=== PATIENT | male | born 1950 | race Caucasian/White ===

== ENCOUNTER 2018-06-30 09:22 | Inpatient (IN) | payer OTHER, MEDICARE ==
--- NOTE | 2018-06-30 09:24 | PDOC ---
History of Present Illness - General Chief Complaint: Shortness of Breath Stated Complaint: shortness of breath - History of Present Illness Initial Comments: The patient is a 68M w/ a history of HTN, HLD, and an undiagnosed connective tissue disorder who presents for evaluation of 2 days of intermittent dyspnea. The patient reports never having had this before. Thus far the episodes will start and resolve spontaneously. He has not been able to identify any exacerbating or alleviating factors. He denies associated cough, fevers, sick contacts, N/V/C/D, or changes in sensation. The patient endorses chronic hyperalgesia. He also endorses 1m of L thoracic chest pain that is described as sharp, intermittent, non-excertional, worse with palpation, and not alleviated by anything that he can think of. Denies hx of asthma/COPD, reports quitting tobacco 3y ago. 06/30/18 09:50 Past History - Past Medical History Allergies/Adverse Reactions: Allergies Allergy/AdvReac Type Severity Reaction Status Date / Time No Known Allergies Allergy Verified 06/30/18 09:24 Home Medications: Ambulatory Orders Brimonidine Tartrate/Timolol [Combigan Eye Drops] 5 ml OP BID 06/30/18 Cyclosporine [Restasis Multidose] 0 ml OP ASDIR 06/30/18 Diclofenac Sodium 50 mg PO BID 06/30/18 Latanoprost/Pf [Latanoprost 0.005% Eye Drop] 7.5 ml OP DAILY 06/30/18 Tamsulosin HCl [Flomax] 0.4 mg PO HS 06/30/18 Anemia: No Asthma: No Cancer: No Cardiac Disorders: No CVA: No COPD: No CHF: No Dementia: No Diabetes: No GI Disorders: Yes (BLOATING/CONSTIPATION X 1 MONTH) Disorders: Yes (BPH) HTN: Yes Hypercholesterolemia: Yes Liver Disease: No Seizures: No Thyroid Disease: No - Surgical History Abdominal Surgery: Yes (BILA HERNIA REPAIR 2009) Appendectomy: No Cardiac Surgery: No Cholecystectomy: No Lung Surgery: No Neurologic Surgery: No Orthopedic Surgery: No - Suicide/Smoking/Psychosocial Hx Smoking History: Former smoker Have you smoked in the past 12 months: No If you are a former smoker, when did you quit?: 1970S Hx Alcohol Use: No Drug/Substance Use Hx: No Substance Use Type: None Hx Substance Use Treatment: No Review of Systems - Review of Systems Able to Perform ROS?: Yes Comments:: GENERAL/CONSTITUTIONAL: No fever or chills. No weakness HEAD, EYES, EARS, NOSE AND THROAT: No change in vision. No ear pain or discharge. No sore throat RESPIRATORY: No cough, wheezing, or hemoptysis GASTROINTESTINAL: No nausea, vomiting, diarrhea or constipation GENITOURINARY: No dysuria, frequency, or change in urination MUSCULOSKELETAL: +chronic diffuse neuropathy SKIN: No rash NEUROLOGIC: No headache, vertigo, loss of consciousness, or change in strength/ sensation ENDOCRINE: No increased thirst. No abnormal weight change HEMATOLOGIC/LYMPHATIC: No anemia, easy bleeding, or history of blood clots ALLERGIC/IMMUNOLOGIC: No hives or skin allergy 06/30/18 09:29 Is the patient limited Tuvaluan proficient: No *Physical Exam - Vital Signs Vital Signs Temp Pulse Resp BP Pulse Ox 98.3 F 82 16 197/100 H 100 06/30/18 09:24 06/30/18 09:24 06/30/18 09:24 06/30/18 09:24 06/30/18 09:24 06/30/18 09:30 - Physical Exam Comments: GENERAL: Awake, alert, and fully oriented, in no acute distress HEAD: No signs of trauma, normocephalic, atraumatic EYES: PERRLA, EOMI, sclera anicteric, conjunctiva clear ENT: Hearing grossly normal, nares patent, oropharynx clear without exudates. Moist mucosa LUNGS: No distress, speaks full sentences, clear to auscultation bilaterally HEART: Regular rate and rhythm, normal S1 and S2, no murmurs appreciated, peripheral pulses normal and equal bilaterally ABDOMEN: Soft, protuberant, nontender, normoactive bowel sounds. No guarding, no rebound EXTREMITIES : Normal inspection, Normal range of motion, no edema. No clubbing or cyanosis NEUROLOGICAL: Cranial nerves II through XII grossly intact. Normal speech, normal gait, no focal sensorimotor deficits SKIN: Warm, Dry, normal turgor, no rashes or lesions noted 06/30/18 09:30 ED Treatment Course - LABORATORY CBC & Chemistry Diagram: 06/30/18 10:21 06/30/18 10:21 Medical Decision Making - Medical Decision Making The patient is a 68M w/ a history of HTN, HLD, and a yet undiagnosed Rheumatological d/o who presents for evaluation of intermittent, non-excertional , dyspnea for the last two days. Ddx: viral URI, PNA, PNX, ACS, HTN urgency ED Course CMP, CBC, cardiac profile ECG CXR 06/30/18 09:30 Rheum: Dr. Cagle: [phone] -Reports patient is generally rather anxious. May have some level of cognitive delay related to autoimmune process. Thus far is unsure of diagnosis. Reports patient recently saw new [facility]n [facility] but does not know name. PCP: Dr. Bueno -Attempted to contact but will no be in his office until 1200. Amlodipine 5mg PO once for HTN urgency 06/30/18 09:59 No leukocytosis Patient w/ records of normal stress test in 11/2017 for evaluation of BRITT -Patient w/ similar w/u in 2009 as well w/ negative cardiac w/u 06/30/18 10:[address] Bueno again. Per his office he has scheduled patient's today and will be in. Another message was left for call back. At this time the patient does not wish to stay for admission and would like to have Dr. Bueno's licensed mental health counselor before making his decision Initial Trop I neg Plan for admission for tele obs for ACS r/o 06/30/18 12:15 Spoke w/ Dr. Bueno who stated that on the patient's last two visits, he did not complain of chest pain or BRITT. He states he agrees with admission for serial Trop and ECHO. He also reports that he is unaware of the patient seeing a director of recruitment if it has occurred. Dispo: Admit *DC/Admit/Observation/Transfer Diagnosis at time of Disposition: Shortness of breath, ACS (acute coronary syndrome) - Discharge Dispostion Condition at time of disposition: Stable Decision to Admit order: Yes - Referrals - Patient Instructions - Post Discharge Activity
--- NOTE | 2018-06-30 10:24 | PDOC ---
Attending Attestation - Resident Resident Name: Raad Austin - ED Attending Attestation I have performed the following: I have examined & evaluated the patient, The case was reviewed & discussed with the resident, I agree w/resident's findings & plan - HPI HPI: 06/30/18 10:19 68-year-old male with history of hypertension, high cholesterol, smoking until 3y ago, currently undergoing workup for get undiagnosed myalgias described as one year of bilateral arm and leg pain, now presents with shortness of breath over the last 1-2 days. Patient's proceeding symptoms consisted of a "pulling sensation" in his arms and legs, has had extensive workups including a stress test in December performed for hand tingling that was normal, undergoing rheumatologic workup and is status post skin biopsy. Patient presents now with trouble catching his breath since yesterday, described as 3 separate episodes while at rest. The symptoms are associated with some left chest discomfort, but he has been having chest discomfort intermittently for a couple of months, presumably as part of his underlying disease. Asymptomatic at this time, but presents secondary to trouble breathing this morning. At baseline, reports unlimited exercise tolerance, no recent fevers or chills or cough. Has had leg swelling for several months. Reports compliance with his blood pressure medications, states his blood pressure is always high. - Physicial Exam PE: 06/30/18 10:22 Elevated blood pressure, 170/90 on my evaluation Comfortable appearing, ambulatory and speaking full sentences. Obese. Oropharynx clear, no stridor Lungs are clear, no crackles or asymmetry Heart is regular, subtle systolic murmur Abdomen is protuberant but soft and nontender and nondistended 1-2+ pitting edema bilaterally to the knees without calf tenderness and good distal pulses - Medical Decision Making 06/30/18 10:23 68-year-old male presents with relatively new difficulty breathing and subacute left-sided chest pain. Has several risk factors for ACS, had a stress test in December that was reportedly unremarkable but this preceded any cardiopulmonary symptoms. Less likely infectious process, lower suspicion for PE. Question ACS versus symptomatic hypertension and early diastolic failure. Labs, EKG, chest x-ray We'll discuss with patient's physicians, but likely admission for cardiac monitoring and workup 06/30/18 12:33 w/u within normal limits except for new LLL density. no evidence of infection, ? effusion. proceed with admission but patient currently refusing, citing having had a stress test in November and undergoing multiple analyses as an outpt. explained indications for admission and entire spectrum of leaving without complete workup. wants to speak to his PCP, from whom we are awaiting a callback. otherwise, has been accepted for obs tele by Dr. Rosa, signout given to ISAMAR Mota. Awaiting patient's consent. Heart Score/ECG Review - History History: Moderately suspicious - Electrocardiogram EKG: Non specific repolarization disturbance - Age Age: >/= 65 - Risk Factors Risk Factors Heart Score: Yes Hx Hypercholesterolemia, Yes Hx Hypertension, Yes Smoking History, Yes Hx Obesity Based on the list above the patient has:: >/=3 risk factors or Hx atherosclerotic disease - Troponin Troponin: </= normal limit - Score Heart Score - Total: 6 #1 ECG reviewed & interpreted by me at: 09:27 General ECG Interpretation: Sinus Rhythm, Normal Rate (74), Normal Intervals ( qtc 384), No acute ischemic changes (nonspecific T wave change III/AVF, TWI V4- V6)
[2018-06-30 10:28] LABS: HEMATOCRIT 46.2 % (35.4-49); HEMOGLOBIN 15.8 GM/dl (11.7-16.9); MCHC 34.1 g/dl (32.0-35.9); MEAN CELL VOLUME 87.9 fl (80-96); MEAN PLT VOLUME 9.4 fl (7.5-11.1); PLATELET COUNT 184 K/MM3 (134-434); RBC 5.26 M/mm3 (4.00-5.60); RDW 12.1 % (11.9-15.9); WHITE BLOOD COUNT 9.1 K/mm3 (4.0-10.8)
[2018-06-30] MEDS ORDERED: amLODIPine BESYLATE 5 MG TABLET (FP) PO ONE ×2 (10:36→17:27)
[2018-06-30] MEDS ORDERED: amLODIPine BESYLATE 5 MG TABLET (FP) ONE (10:48)
[2018-06-30 11:50] LABS: ALBUMIN 3.9 g/dl (3.4-5.0); ALK PHOS 89 U/L (45-117); ANION GAP 10 MMOL/L (8-16); BILIRUBIN,TOTAL 0.8 mg/dL (0.2-1); BLOOD UREA NITROGEN 25 mg/dL (7-18); CALCIUM 8.9 mg/dL (8.5-10.1); CHLORIDE 104 mmol/L (98-107); CO2 25 mmol/L (21-32); GLUCOSE,RANDOM 111 mg/dL (74-106); POTASSIUM 4.3 mmol/L (3.5-5.1); SGOT/AST 21 U/L (15-37); SGPT/ALT 49 U/L (13-61); SODIUM 138 mmol/L (136-145); TOT PROT 6.9 g/dl (6.4-8.2)
--- NOTE | 2018-06-30 12:59 | EKG ---
Test Reason : Blood Pressure : / mmHG Vent. Rate : 074 BPM Atrial Rate : 074 BPM P-R Int : 100 ms QRS Dur : 094 ms QT Int : 346 ms P-R-T Axes : 000 061 -18 degrees QTc Int : 384 ms SINUS RHYTHM WITH SHORT IL ABNORMAL ECG NO PREVIOUS ECGS AVAILABLE Confirmed by Jordi Hopkins MD ([id number]) on 06/30/2018 12:59:27 PM Referred By: GERA RIVERA Confirmed By:Jordi Hopkins MD
--- NOTE | 2018-06-30 13:48 | HP ---
CHIEF COMPLAINT: SOB PCP: Sam Antunez [place] Facilities Maintenance Worker: Dr. Cagle, [facility] Computer Numerical Control Programmer: Dr. Whittaker, [facility] HISTORY OF PRESENT ILLNESS: 68 year-old male with a PMH significant for HTN and HLD currently undergoing workup for myalgias described as one year of bilateral arm and leg pain and episodes of chest tightness and shortness of breath. Suspicion for amyloidosis but no diagnoses to date. Patient presented to the ED today with a complaint of SOB much worse than it has been over the past several months. He describes a "pulling sensation" in his arms and legs and he loses his breath. He has had 2- 3 such episodes over the past two days. He was at rest when the episodes started. They lasted for several hours each, and then spontaneously resolved. Patient had a full cardiac workup in December 2017 at [place] inclucing stress and echo all reportedly normal. At baseline, reports unlimited exercise tolerance, no recent fevers or chills or cough. Has had leg swelling for several months. Reports compliance with his blood pressure medications, states his blood pressure is always high. ER course was notable for: (1) BP 197/100, p68 (2) ECG: SR @ 74 with TWI V4-V6 (no previous for comparison) Recent Travel: No PAST MEDICAL HISTORY: Hypertension Hyperlipidemia Myalgias PAST SURGICAL HISTORY: Hernia repair Social History: Smoking: quit 3 years ago Alcohol: occasional Drugs: no Family History: Allergies No Known Allergies Allergy (Verified 06/30/18 09:24) HOME MEDICATIONS: Home Medications Medication Instructions Recorded Brimonidine Tartrate/Timolol 5 ml OP BID 06/30/18 [Combigan Eye Drops] Cyclosporine [Restasis Multidose] 0 ml OP ASDIR 06/30/18 Diclofenac Sodium 50 mg PO BID 06/30/18 Latanoprost/Pf [Latanoprost 0.005% 7.5 ml OP DAILY 06/30/18 Eye Drop] Tamsulosin HCl [Flomax] 0.4 mg PO HS 06/30/18 REVIEW OF SYSTEMS CONSTITUTIONAL: Absent: fever, chills, diaphoresis, generalized weakness, malaise, loss of appetite, weight change HEENT: Absent: rhinorrhea, nasal congestion, throat pain, throat swelling, difficulty swallowing, mouth swelling, ear pain, eye pain, visual changes CARDIOVASCULAR: +SOB, lower extremity edema Absent: chest pain, syncope, palpitations, irregular heart rate, lightheadedness RESPIRATORY: Absent: cough, shortness of breath, dyspnea with exertion, orthopnea, wheezing, stridor, hemoptysis GASTROINTESTINAL: Absent: abdominal pain, abdominal distension, nausea, vomiting, diarrhea, constipation, melena, hematochezia GENITOURINARY: Absent: dysuria, frequency, urgency, hesitancy, hematuria, flank pain, genital pain MUSCULOSKELETAL: +myalgias Absent: myalgia, arthralgia, joint swelling, back pain, neck pain SKIN: Absent: rash, itching, pallor HEMATOLOGIC/IMMUNOLOGIC: Absent: easy bleeding, easy bruising, lymphadenopathy, frequent infections ENDOCRINE: Absent: unexplained weight gain, unexplained weight loss, heat intolerance, cold intolerance NEUROLOGIC: Absent: headache, focal weakness or paresthesias, dizziness, unsteady gait, seizure, mental status changes, bladder or bowel incontinence PSYCHIATRIC: Absent: anxiety, depression, suicidal or homicidal ideation, hallucinations. PHYSICAL EXAMINATION Vital Signs - 24 hr 06/30/18 06/30/18 06/30/18 09:24 09:31 11:11 Temperature 98.3 F Pulse Rate 82 Pulse Rate [ 77 Apical] Respiratory 16 16 Rate Blood Pressure 197/100 H Blood Pressure 177/82 H 168/92 [Arm] O2 Sat by Pulse 100 99 Oximetry (%) 06/30/18 06/30/18 11:47 13:22 Temperature Pulse Rate Pulse Rate [ 66 75 Apical] Respiratory 16 18 Rate Blood Pressure Blood Pressure 167/91 158/91 [Arm] O2 Sat by Pulse 97 98 Oximetry (%) GENERAL: Awake, alert, and fully oriented, in no acute distress. Anxious. HEAD: Normal with no signs of trauma. EYES: Pupils equal, round and reactive to light, extraocular movements intact, sclera anicteric, conjunctiva clear. No lid lag. LUNGS: Breath sounds equal, clear to auscultation bilaterally. No wheezes, and no crackles. No accessory muscle use. HEART: Regular rate and rhythm, S1 and S2 without murmur, rub or gallop. ABDOMEN: Soft, nontender, protuberant MUSCULOSKELETAL: Normal range of motion at all joints. No bony deformities or tenderness. No CVA tenderness. UPPER EXTREMITIES: 2+ pulses, warm, well-perfused. No cyanosis. No clubbing. No peripheral edema. LOWER EXTREMITIES: 2+ pulses, warm, well-perfused. No calf tenderness. No peripheral edema. No calf tenderness NEUROLOGICAL: Cranial nerves II-XII intact. Normal speech. Normal gait. Laboratory Results - last 24 hr 06/30/18 06/30/18 06/30/18 10:21 10:21 10:21 WBC 9.1 RBC 5.26 Hgb 15.8 Hct 46.2 MCV 87.9 MCH 30.0 MCHC 34.1 RDW 12.1 Plt Count 184 MPV 9.4 D Sodium 138 Potassium 4.3 Chloride 104 Carbon Dioxide 25 Anion Gap 10 BUN 25 H Creatinine 1.0 Creat Clearance w eGFR > 60 Random Glucose 111 H Calcium 8.9 Total Bilirubin 0.8 AST 21 ALT 49 Alkaline Phosphatase 89 Creatine Kinase 120 Troponin I < 0.02 Total Protein 6.9 Albumin 3.9 ASSESSMENT/PLAN 68 year-old male with a PMH significant for HTN, HLD, and myalgias. Placed on observation for chest pain and SOB. Chest pain Shortness of breath --Troponins neg x 2, third pending --CXR: unremarkable --ECG: sinus rhythm @ 74, T wave inversions V4-V6, no previous for comparison --echo ordered --telemetry monitoring --NPO tonight in event of stress tomorrow --Dr. Early, cardiology, to follow --continue ASA and statin Hypertensive urgency --BP 197/100 in ED --continued on home amlodipine and added lisinopril Hyperlipidemia --continue statin FEN Fluids: PO intake adequate Electrolytes: replete as indicated Nutrition: low sodium DVT prophylaxis: subq lovenox Dispo: continues to require observation. Full code. Visit type - Emergency Visit Emergency Visit: Yes ED Registration Date: 06/30/18 Care time: The patient presented to the Emergency Department on the above date and was hospitalized for further evaluation of their emergent condition. - New Patient This patient is new to me today: Yes Date on this admission: 07/01/18 - Critical Care Critical Care patient: No
[2018-06-30 14:13] VITALS: BMI 38.8
[2018-06-30] MEDS ORDERED: [UNRECOGNIZED DRUG - OTHER] OS SCH (15:00)
[2018-06-30] MEDS ORDERED: LATANOPROST OS SCH (15:00)
--- NOTE | 2018-06-30 15:06 | CON.CARD ---
Consult Consult Specialty:: Cardiology - History of Present Illness History of Present Illness: 68-year-old male with history of hypertension, high cholesterol, smoking until 3y ago, currently undergoing workup for get undiagnosed myalgias described as one year of bilateral arm and leg pain, now presents with shortness of breath over the last 1-2 days. Patient's proceeding symptoms consisted of a "pulling sensation" in his arms and legs, has had extensive workups including a stress test in December performed for hand tingling that was normal, undergoing rheumatologic workup and is status post skin biopsy. Patient presents now with trouble catching his breath since yesterday, described as 3 separate episodes while at rest. The symptoms are associated with some left chest discomfort, but he has been having chest discomfort intermittently for a couple of months, presumably as part of his underlying disease. - History Source History Provided By: Patient, Medical Record - Past Medical History Cardio/Vascular: Yes: HTN, Hyperlipdemia - Alcohol/Substance Use Hx Alcohol Use: No - Smoking History Smoking history: Former smoker Have you smoked in the past 12 months: No If you are a former smoker, when did you quit?: 1970S Home Medications - Allergies Allergies/Adverse Reactions: Allergies Allergy/AdvReac Type Severity Reaction Status Date / Time No Known Allergies Allergy Verified 06/30/18 09:24 - Home Medications Home Medications: Ambulatory Orders Brimonidine Tartrate/Timolol [Combigan Eye Drops] 5 ml OP BID 06/30/18 Cyclosporine [Restasis Multidose] 0 ml OP ASDIR 06/30/18 Diclofenac Sodium 50 mg PO BID 06/30/18 Latanoprost/Pf [Latanoprost 0.005% Eye Drop] 7.5 ml OP DAILY 06/30/18 Tamsulosin HCl [Flomax] 0.4 mg PO HS 06/30/18 Review of Systems - Review of Systems Constitutional: reports: No Symptoms Eyes: reports: No Symptoms HENT: reports: No Symptoms Neck: reports: No Symptoms Cardiovascular: reports: Chest Pain, Shortness of Breath Gastrointestinal: reports: No Symptoms Genitourinary: reports: No Symptoms Breasts: reports: No Symptoms Reported Musculoskeletal: reports: No Symptoms Integumentary: reports: No Symptoms Neurological: reports: No Symptoms Endocrine: reports: No Symptoms Hematology/Lymphatic: reports: No Symptoms Psychiatric: reports: No Symptoms Vital Signs: Vital Signs Temperature 98.4 F 06/30/18 13:59 Pulse Rate 68 06/30/18 13:59 Respiratory Rate 16 06/30/18 13:59 Blood Pressure 159/84 06/30/18 13:59 O2 Sat by Pulse Oximetry (%) 97 06/30/18 13:59 Constitutional: Yes: Well Nourished, No Distress, Calm Eyes: Yes: WNL, Conjunctiva Clear, EOM Intact HENT: Yes: WNL, Atraumatic, Normocephalic Neck: Yes: WNL, Supple, Trachea Midline Respiratory: Yes: WNL, Regular, CTA Bilaterally Gastrointestinal: Yes: WNL, Normal Bowel Sounds Renal/: Yes: WNL Cardiovascular: Yes: WNL, Regular Rate and Rhythm Musculoskeletal: Yes: WNL Extremities: Yes: WNL Integumentary: Yes: WNL Neurological: Yes: WNL, Alert, Oriented ...Motor Strength: WNL Psychiatric: Yes: WNL, Alert, Oriented - Other Data Labs, Other Data: CBC, BMP 06/30/18 10:21 06/30/18 10:21 Troponin, BNP 06/30/18 10:21 Troponin I < 0.02 Troponin, BNP 06/30/18 10:21 Troponin I < 0.02 Imaging - Results Chest X-ray: Image Reviewed (no i/e) EKG: Image Reviewed (sr lateral reporalization abnormalities) Problem List - Problems (1) ACS (acute coronary syndrome) Code(s): I24.9 - ACUTE ISCHEMIC HEART DISEASE, UNSPECIFIED (2) Shortness of breath Code(s): R06.02 - SHORTNESS OF BREATH (3) Corneal abrasion Code(s): S05.00XA - INJ CONJUNCTIVA AND CORNEAL ABRASION W/O FB, UNSP EYE, INIT Assessment/Plan hypertension, high cholesterol, smoking until 3y ago, currently undergoing workup for get undiagnosed myalgias described as one year of bilateral arm and leg pain, now presents with shortness of breath over the last 1-2 days. Plan ASA 81 BP control r/o mi echo telemetry MIBI ST in am
[2018-06-30] MEDS ORDERED: ASPIRIN COATED 81 MG TABLET.EC PO SCH (17:15)
[2018-06-30] MEDS: PANTOPRAZOLE 40 MG TABLET (FP) PO SCH (17:47)
[2018-06-30] MEDS ORDERED: LISINOPRIL 10 MG TABLET (FP) PO ONE (18:38)
[2018-06-30] MEDS: ASPIRIN 81 MG CHEWABLE TABLETS PO SCH (19:00)
[2018-06-30] MEDS ORDERED: ALPRAZolam 0.25 MG TABLET PO PRN (19:43)
[2018-06-30] MEDS: ATORVASTATIN CA 10 MG TABLET (FP) PO SCH (21:40)
[2018-06-30] MEDS: TAMSULOSIN HCL 0.4 MG CAP PO SCH (21:40)
[2018-06-30] MEDS: PATIENT'S OWN MEDICATION (NON-FORMULARY) (Brimonidine Tartrate/Timolol [Combigan 0.2%-0.5% OU SCH (21:41)
[2018-06-30] MEDS: [UNRECOGNIZED DRUG - OTHER] OS SCH (21:41)
[2018-06-30] MEDS: LATANOPROST OS SCH (21:41)
[2018-07-01] MEDS ORDERED: LISINOPRIL 10 MG TABLET (FP) PO SCH (10:00)
[2018-07-01] MEDS: PANTOPRAZOLE 40 MG TABLET (FP) PO SCH (10:00)
[2018-07-01] MEDS ORDERED: amLODIPine BESYLATE 5 MG TABLET (FP) PO SCH (10:00)
[2018-07-01] MEDS ORDERED: ENOXAPARIN NA (PORCINE) 40 MG/0.4 ML DISP.SYRIN SQ SCH (10:00)
[2018-07-01] MEDS: PATIENT'S OWN MEDICATION (NON-FORMULARY) (Brimonidine Tartrate/Timolol [Combigan 0.2%-0.5% OU SCH ×2 (10:00→21:32)
[2018-07-01] MEDS: ASPIRIN 81 MG CHEWABLE TABLETS PO SCH (10:00)
[2018-07-01 10:41] LABS: BASO % 0.8 % (0-2.0); EOS % 3.2 % (0-4.5); HEMATOCRIT 45.5 % (35.4-49); HEMOGLOBIN 15.4 GM/dl (11.7-16.9); LYMPH % 25.6 % (8-40); MCH 29.6 pg (25.7-33.7); MCHC 33.7 g/dl (32.0-35.9); MEAN CELL VOLUME 87.7 fl (80-96); MONO % 7.6 % (3.8-10.2); NEUT % 62.8 % (42.8-82.8); PLATELET COUNT 187 K/MM3 (134-434); RBC 5.19 M/mm3 (4.00-5.60); RDW 12.2 % (11.9-15.9); WHITE BLOOD COUNT 7.8 K/mm3 (4.0-10.8)
[2018-07-01 11:08] LABS: ALBUMIN 3.9 g/dl (3.5-5.0); ALK PHOS 64 U/L (32-92); ANION GAP 3 MMOL/L (8-16); BILIRUBIN,TOTAL 1.1 mg/dl (0.2-1.0); BLOOD UREA NITROGEN 24 mg/dl (7-18); CALCIUM 9.3 mg/dl (8.4-10.2); CHLORIDE 103 mmol/L (98-107); CO2 28 mmol/L (22-28); GLUCOSE,RANDOM 120 mg/dl (74-106); MAGNESIUM 2.1 mg/dL (1.8-2.4); PHOSPHOROUS 3.2 mg/dl (2.5-4.6); POTASSIUM 4.3 mmol/L (3.5-5.1); SGOT/AST 26 U/L (10-42); SGPT/ALT 42 U/L (10-40); SODIUM 134 mmol/L (136-145); TOT PROT 6.3 g/dl (6.4-8.3)
--- NOTE | 2018-07-01 11:16 | PN ---
Progress Note, Physician History of Present Illness: 68-year-old male with history of hypertension, high cholesterol, smoking until 3y ago, currently undergoing workup for get undiagnosed myalgias described as one year of bilateral arm and leg pain, now presents with shortness of breath over the last 1-2 days. Patient's proceeding symptoms consisted of a "pulling sensation" in his arms and legs, has had extensive workups including a stress test in December performed for hand tingling that was normal, undergoing rheumatologic workup and is status post skin biopsy. Patient presents now with trouble catching his breath since yesterday, described as 3 separate episodes while at rest. The symptoms are associated with some left chest discomfort, but he has been having chest discomfort intermittently for a couple of months, presumably as part of his underlying disease. - Current Medication List Current Medications: Active Medications Alprazolam (Xanax -) 0.5 mg PO HS PRN PRN Reason: ANXIETY Last Admin: 06/30/18 21:40 Dose: 0.5 mg Amlodipine Besylate (Norvasc -) 5 mg PO DAILY [facility] Aspirin (Asa -) 81 mg PO DAILY [facility] Last Admin: 06/30/18 19:00 Dose: 81 mg Atorvastatin Calcium (Lipitor -) 10 mg PO HS [facility] Last Admin: 06/30/18 21:40 Dose: 10 mg Enoxaparin Sodium (Lovenox -) 40 mg SQ DAILY [facility] Lisinopril (Prinivil) 10 mg PO DAILY [facility] Non-Formulary Medication (Brimonidine Tartrate/Timolol [Combigan 0.2%-0.5% Eye Drops]) 0 ml OU BID [facility] Last Admin: 06/30/18 21:41 Dose: 1 ml Non-Formulary Medication (Latanoprost/Pf [Latanoprost 0.005% Eye Drop]) 0 ml OS HS [facility] Last Admin: 06/30/18 21:41 Dose: 1 ml Pantoprazole Sodium (Protonix -) 40 mg PO DAILY [facility] Last Admin: 06/30/18 17:47 Dose: 40 mg Tamsulosin HCl (Flomax -) 0.4 mg PO HS [facility] Last Admin: 06/30/18 21:40 Dose: 0.4 mg - Objective Vital Signs: Vital Signs Temperature 97.8 F 07/01/18 06:00 Pulse Rate 62 07/01/18 06:00 Respiratory Rate 16 11/21/18 08:34 Blood Pressure 141/75 07/01/18 06:00 O2 Sat by Pulse Oximetry (%) 97 07/01/18 08:34 Eyes: Yes: WNL, Conjunctiva Clear, EOM Intact HENT: Yes: WNL, Atraumatic, Normocephalic Neck: Yes: WNL, Supple, Trachea Midline Cardiovascular: Yes: WNL, Regular Rate and Rhythm Respiratory: Yes: WNL, Regular, CTA Bilaterally Gastrointestinal: Yes: WNL, Normal Bowel Sounds Genitourinary: Yes: WNL Musculoskeletal: Yes: WNL Extremities: Yes: WNL Edema: No Integumentary: Yes: WNL Neurological: Yes: WNL, Alert, Oriented ...Motor Strength: WNL Psychiatric: Yes: WNL Labs: CBC, BMP 07/01/18 10:32 Problem List - Problems (1) ACS (acute coronary syndrome) Code(s): I24.9 - ACUTE ISCHEMIC HEART DISEASE, UNSPECIFIED (2) Shortness of breath Code(s): R06.02 - SHORTNESS OF BREATH (3) Corneal abrasion Code(s): S05.00XA - INJ CONJUNCTIVA AND CORNEAL ABRASION W/O FB, UNSP EYE, INIT Assessment/Plan hypertension, high cholesterol, smoking until 3y ago, currently undergoing workup for get undiagnosed myalgias described as one year of bilateral arm and leg pain, now presents with shortness of breath over the last 1-2 days. Plan MIBI stress test showed moderately sized moberate intensity IW ischemia. I would recommend c. cath 07-03-18 at [place] [facility]. Toprol xl 25 QD
[2018-07-01] MEDS ORDERED: TUBERCULIN PPD 5 TU/0.1ML VIAL ID ONE (12:13)
--- NOTE | 2018-07-01 13:27 | ECHO ---
Name: VIRAL CALIX Exam:Adult Echocardiogram Study Date: 07/01/2018 11:24 AM Age: 68 yrs Reason For Study: SOB Height: 66 in Weight: 240 lb BSA: 2.2 m2 MMode/2D Measurements & Calculations IVSd: 1.00 cm Ao root diam: 3.5 cm LVIDd: 5.1 cm LA dimension: 4.4 cm LVIDs: 3.5 cm LVPWd: 1.3 cm EDV(Teich): 123.7 ml LVOT diam: 2.2 cm ESV(Teich): 50.7 ml Doppler Measurements & Calculations MV E max colin: 33.6 cm/sec Ao V2 max: 127.9 cm/sec MV A max colin: 57.3 cm/sec Ao max P.5 mmHg MV E/A: 0.59 Med Peak E' Colin: 4.7 cm/sec Med E/e': 7.1 Lat Peak E' Colin: 7.6 cm/sec Lat E/e': 4.4 Procedure A two-dimensional transthoracic echocardiogram with color flow and Doppler was performed. Left Ventricle The left ventricular size, thickness and function are normal. The left ventricular ejection fraction is normal. Septal motion is consistent with conduction abnormality. Right Ventricle The right ventricle is normal in size and function. Atria The left atrium is moderately dilated. The right atrium is moderately dilated. Mitral Valve There is mild mitral valve thickening. There is no mitral valve stenosis. There is mild mitral regurg itation. Tricuspid Valve There is mild tricuspid valve thickening. There is no tricuspid stenosis. There was insufficient TR d etected to calculate RV systolic pressure. Aortic Valve The aortic valve is not well visualized. No hemodynamically significant valvular aortic stenosis. No aortic regurgitation is present. Pulmonic Valve The pulmonic valve is not well visualized. Great Vessels The aortic root is normal size. Pericardium/Pleura There is no pericardial effusion. Interpretation Summary The left ventricular size, thickness and function are normal The left atrium is moderately dilated. The right atrium is moderately dilated. The left ventricular ejection fraction is normal. Septal motion is consistent with conduction abnormality. There is mild mitral regurgitation. There was insufficient TR detected to calculate RV systolic pressure. MD Shaggy Early 07/01/2018 01:27 PM
[2018-07-01] MEDS ORDERED: metoPROLOL SUCCINATE 25 MG TAB.SR.24H (FP) PO SCH (17:00)
[2018-07-01] MEDS ORDERED: ALPRAZolam 0.25 MG TABLET PO PRN (17:23)
[2018-07-01] MEDS ORDERED: NITROGLYCERIN SUBLINGUAL 1/200 0.3 MG BTL SL PRN (17:25)
[2018-07-01] MEDS ORDERED: METOPROLOL TARTRATE 25 MG TABLET (FP) PO ONE (17:28)
--- NOTE | 2018-07-01 17:28 | PN ---
Physical Exam: SUBJECTIVE: Patient seen and examined oob to chair. Discussed positive stress test results with patient and . Patient has not had any episodes of chest tightness or SOB today. OBJECTIVE: Vital Signs Period Temp Pulse Resp BP Sys/Yates Pulse Ox Last 24 Hr 97.2 F-98.4 F 54-71 16-18 118-185/52-80 96-98 GENERAL: The patient is awake, alert, and fully oriented, in no acute distress. LUNGS: Breath sounds equal, clear to auscultation bilaterally, no wheezes, no crackles, no accessory muscle use. HEART: Regular rate and rhythm, S1, S2 without murmur, rub or gallop. ABDOMEN: Soft, nontender, nondistended EXTREMITIES: 2+ pulses, warm, well-perfused, no edema. NEUROLOGICAL: Cranial nerves II through XII grossly intact. Normal speech PSYCH: Anxious. SKIN: Warm, dry, normal turgor Laboratory Results - last 24 hr 06/30/18 07/01/18 07/01/18 23:00 10:32 10:32 WBC 7.8 RBC 5.19 Hgb 15.4 Hct 45.5 MCV 87.7 MCH 29.6 MCHC 33.7 RDW 12.2 Plt Count 187 MPV 10.0 Absolute Neuts (auto) 4.9 Neutrophils % 62.8 Lymphocytes % 25.6 D Monocytes % 7.6 Eosinophils % 3.2 Basophils % 0.8 Sodium 134 L Potassium 4.3 Chloride 103 Carbon Dioxide 28 Anion Gap 3 L BUN 24 H Creatinine 1.0 Creat Clearance w eGFR > 60 Random Glucose 120 H D Hemoglobin A1c % Calcium 9.3 Phosphorus 3.2 Magnesium 2.1 Total Bilirubin 1.1 H AST 26 D ALT 42 H D Alkaline Phosphatase 64 Troponin I < 0.03 B-Natriuretic Peptide Total Protein 6.3 L Albumin 3.9 07/01/18 07/01/18 10:32 10:32 WBC RBC Hgb Hct MCV MCH MCHC RDW Plt Count MPV Absolute Neuts (auto) Neutrophils % Lymphocytes % Monocytes % Eosinophils % Basophils % Sodium Potassium Chloride Carbon Dioxide Anion Gap BUN Creatinine Creat Clearance w eGFR Random Glucose Hemoglobin A1c % 6.2 Calcium Phosphorus Magnesium Total Bilirubin AST ALT Alkaline Phosphatase Troponin I B-Natriuretic Peptide 7.3 Total Protein Albumin Active Medications Generic Name Dose Route Start Last Admin Trade Name Freq PRN Reason Stop Dose Admin Alprazolam 0.25 mg 07/01/18 17:23 Xanax - PO Q6H PRN ANXIETY Amlodipine Besylate 5 mg 07/01/18 10:00 Norvasc - PO DAILY FELECIA Aspirin 81 mg 06/30/18 19:00 06/30/18 19:00 Asa - PO 81 mg DAILY FELECIA Administration Atorvastatin Calcium 10 mg 06/30/18 22:00 06/30/18 21:40 Lipitor - PO 10 mg HS FELECIA Administration Enoxaparin Sodium 40 mg 07/01/18 10:00 Lovenox - SQ DAILY FELECIA Lisinopril 10 mg 07/01/18 10:00 Prinivil PO DAILY FELECIA Metoprolol Succinate 25 mg 07/01/18 17:00 Toprol Xl - PO DAILY FELECIA Non-Formulary Medication 0 ml 06/30/18 22:00 06/30/18 21:41 Brimonidine Tartrate/Timolol [Combigan 0.2%-0.5% Eye Drops] OU 1 ml BID FELECIA Administration Non-Formulary Medication 0 ml 06/30/18 15:43 06/30/18 21:41 Latanoprost/Pf [Latanoprost 0.005% Eye Drop] OS 1 ml HS FELECIA Administration Pantoprazole Sodium 40 mg 06/30/18 17:15 06/30/18 17:47 Protonix - PO 40 mg DAILY FELECIA Administration Tamsulosin HCl 0.4 mg 06/30/18 22:00 06/30/18 21:40 Flomax - PO 0.4 mg HS FELECIA Administration ASSESSMENT/PLAN: 68 year-old male with a PMH significant for HTN, HLD, and myalgias. Placed on observation for chest pain and SOB. Positive stress test. 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 Early following --continue ASA and statin, start beta celi; nitro SL PRN Hypertensive urgency --BP 197/100 in ED --improvement today on amlodipine and lisinopril; start Toprol XL 25mg daily Hyperlipidemia --continue statin FEN Fluids: PO intake adequate Electrolytes: replete as indicated Nutrition: low sodium DVT prophylaxis: subq lovenox Dispo: continues to require inpatient care. Full code. Visit type - Emergency Visit Emergency Visit: Yes ED Registration Date: 06/30/18 Care time: The patient presented to the Emergency Department on the above date and was hospitalized for further evaluation of their emergent condition. - New Patient This patient is new to me today: No - Critical Care Critical Care patient: No
[2018-07-01] MEDS: ALPRAZolam 0.25 MG TABLET PO SCH (21:30)
[2018-07-01] MEDS: ATORVASTATIN CA 10 MG TABLET (FP) PO SCH (21:30)
[2018-07-01] MEDS: TAMSULOSIN HCL 0.4 MG CAP PO SCH (21:30)
[2018-07-01] MEDS: LATANOPROST OS SCH (21:33)
[2018-07-01] MEDS: [UNRECOGNIZED DRUG - OTHER] OS SCH (21:33)
[2018-07-01] MEDS ORDERED: ALPRAZolam 0.25 MG TABLET PO SCH (22:00)
[2018-07-01] MEDS ORDERED: PATIENT'S OWN MEDICATION (NON-FORMULARY) (Simvastatin [Simvastatin] 20 MG) PO SCH (22:00)
[2018-07-02] MEDS ORDERED: ALPRAZolam 0.25 MG TABLET PO PRN (07:29)
[2018-07-02] MEDS ORDERED: NITROGLYCERIN SUBLINGUAL 1/200 0.3 MG BTL SL PRN (07:29)
[2018-07-02] MEDS: metoPROLOL SUCCINATE 25 MG TAB.SR.24H (FP) PO SCH (09:34)
[2018-07-02] MEDS: PANTOPRAZOLE 40 MG TABLET (FP) PO SCH (09:34)
[2018-07-02] MEDS: amLODIPine BESYLATE 5 MG TABLET (FP) PO SCH (09:34)
[2018-07-02] MEDS: ASPIRIN 81 MG CHEWABLE TABLETS PO SCH (09:34)
[2018-07-02] MEDS: LISINOPRIL 10 MG TABLET (FP) PO SCH (09:34)
[2018-07-02] MEDS: PATIENT'S OWN MEDICATION (NON-FORMULARY) (Brimonidine Tartrate/Timolol [Combigan 0.2%-0.5% OU SCH ×2 (09:40→21:40)
--- NOTE | 2018-07-02 09:50 | PN ---
Progress Note, Physician Chief Complaint: Coverage for Dr. Early First encounter with this patient He is sitting comfortably, no CP, SOB TELE: NSR with several episodes of irregular, narrow complex tachycardia c/w PAF -- self limited. - Current Medication List Current Medications: Active Medications Alprazolam (Xanax -) 0.5 mg PO HS [facility] Last Admin: 07/01/18 21:30 Dose: 0.5 mg Alprazolam (Xanax -) 0.25 mg PO Q6H PRN PRN Reason: ANXIETY Last Admin: 07/02/18 09:34 Dose: 0.25 mg Amlodipine Besylate (Norvasc -) 5 mg PO DAILY [facility] Last Admin: 07/02/18 09:34 Dose: 5 mg Aspirin (Asa -) 81 mg PO DAILY [facility] Last Admin: 07/02/18 09:34 Dose: 81 mg Atorvastatin Calcium (Lipitor -) 10 mg PO HS [facility] Enoxaparin Sodium (Lovenox -) 40 mg SQ DAILY [facility] Last Admin: 07/02/18 09:33 Dose: 40 mg Lisinopril (Prinivil) 10 mg PO DAILY [facility] Last Admin: 07/02/18 09:34 Dose: 10 mg Metoprolol Succinate (Toprol Xl -) 25 mg PO DAILY [facility] Last Admin: 07/02/18 09:34 Dose: 25 mg Nitroglycerin (Nitrostat -) 0.3 mg SL Q5M PRN PRN Reason: FOR CHEST PAIN Non-Formulary Medication (Brimonidine Tartrate/Timolol [Combigan 0.2%-0.5% Eye Drops]) 0 ml OU BID [facility] Last Admin: 07/02/18 09:40 Dose: 1 ml Non-Formulary Medication (Latanoprost/Pf [Latanoprost 0.005% Eye Drop]) 0 ml OS HS [facility] Pantoprazole Sodium (Protonix -) 40 mg PO DAILY [facility] Last Admin: 07/02/18 09:34 Dose: 40 mg Tamsulosin HCl (Flomax -) 0.4 mg PO HS [facility] - Objective Vital Signs: Vital Signs Temperature 97.9 F 07/02/18 09:15 Pulse Rate 69 07/02/18 09:15 Respiratory Rate 16 07/02/18 09:15 Blood Pressure 134/66 07/02/18 09:15 O2 Sat by Pulse Oximetry (%) 94 L 07/01/18 23:00 Constitutional: Yes: No Distress Eyes: Yes: Conjunctiva Clear Cardiovascular: Yes: Regular Rate and Rhythm Respiratory: Yes: CTA Bilaterally Gastrointestinal: Yes: Soft Edema: No Neurological: Yes: Alert, Oriented ...Motor Strength: WNL Labs: CBC, BMP 07/01/18 10:32 07/01/18 10:32 Laboratory Tests 06/30/18 06/30/18 06/30/18 10:21 16:00 23:00 WBC Hgb Plt Count Sodium Potassium BUN Creatinine Troponin I < 0.02 < 0.03 < 0.03 07/01/18 07/01/18 10:32 10:32 WBC 7.8 Hgb 15.4 Plt Count 187 Sodium 134 L Potassium 4.3 BUN 24 H Creatinine 1.0 Troponin I - ....Imaging EKG: Image Reviewed Assessment/Plan IMP: Dyspnea on exertion with abnormal nuclear stress, moderate perfusion defect Probable PAF REC: 1. To start [facility] gtts. 2. Cont tele 3. Patient now agreeable for transfer to [place] for cath as recc by Dr. Early
[2018-07-02] MEDS ORDERED: HEPARIN NA (PORCINE) 5,000 UNITS/ML 1ML VIAL IVPUSH PRN ×2 (09:54)
[2018-07-02] MEDS ORDERED: ENOXAPARIN NA (PORCINE) 40 MG/0.4 ML DISP.SYRIN SQ SCH (10:00)
[2018-07-02] MEDS ORDERED: metoPROLOL SUCCINATE 25 MG TAB.SR.24H (FP) PO SCH (10:00)
[2018-07-02] MEDS ORDERED: HEPARIN - 25,000 UNIT in SODIUM CHLORIDE 495 ML IV SCH (10:00)
--- NOTE | 2018-07-02 13:27 | PN ---
Physical Exam: SUBJECTIVE: Patient seen and examined. Several episodes of tachycardia last night. Denies chest pain or palpitations. 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 OBJECTIVE: Vital Signs Period Temp Pulse Resp BP Sys/Yates Pulse Ox Last 24 Hr 97.4 F-98.8 F 61-86 16-20 127-162/66-79 94-98 GENERAL: The patient is awake, alert, and fully oriented, in no acute distress. HEAD: Normal with no signs of trauma. EYES: PERRL, extraocular movements intact, sclera anicteric, conjunctiva clear. No ptosis. ENT: Ears normal, nares patent, oropharynx clear without exudates, moist mucous membranes. NECK: Trachea midline, full range of motion, supple. LUNGS: Breath sounds equal, clear to auscultation bilaterally, no wheezes, no crackles, no accessory muscle use. HEART: Regular rate and rhythm, S1, S2 without murmur, rub or gallop. ABDOMEN: Soft, nontender, nondistended, normoactive bowel sounds, no guarding, no rebound, no hepatosplenomegaly, no masses. EXTREMITIES: 2+ pulses, warm, well-perfused, no edema. NEUROLOGICAL: No facial droop, normal speech, gait not observed. PSYCH: Normal mood, normal affect. SKIN: Warm, dry, normal turgor, no rashes or lesions noted Laboratory Results - last 24 hr 07/01/18 10:32 Hemoglobin A1c % 6.2 Active Medications Generic Name Dose Route Start Last Admin Trade Name Freq PRN Reason Stop Dose Admin Alprazolam 0.5 mg 07/01/18 22:00 07/01/18 21:30 Xanax - PO 0.5 mg HS FELECIA Administration Alprazolam 0.25 mg 07/02/18 07:29 07/02/18 09:34 Xanax - PO 0.25 mg Q6H PRN Administration ANXIETY Amlodipine Besylate 5 mg 07/02/18 10:00 07/02/18 09:34 Norvasc - PO 5 mg DAILY FELECIA Administration Aspirin 81 mg 07/02/18 10:00 07/02/18 09:34 Asa - PO 81 mg DAILY FELECIA Administration Atorvastatin Calcium 10 mg 07/02/18 22:00 Lipitor - PO HS FELECIA Heparin Sodium (Porcine) 1,000 unit 07/02/18 09:54 Heparin - IVPUSH PRN PRN Heparin Heparin Sodium (Porcine) 5,000 unit 07/02/18 09:54 Heparin - IVPUSH PRN PRN Heparin Heparin Sodium (Porcine) 25, 500 mls @ 20 mls/hr 07/02/18 10:00 07/02/18 11: 32 000 unit/ Sodium Chloride IV 1,000 unit/hr TITR FELECIA 20 mls/hr Administration Protocol 1,000 UNIT/HR Lisinopril 10 mg 07/02/18 10:00 07/02/18 09:34 Prinivil PO 10 mg DAILY FELECIA Administration Metoprolol Succinate 25 mg 07/02/18 10:00 07/02/18 09:34 Toprol Xl - PO 25 mg DAILY FELECIA Administration Nitroglycerin 0.3 mg 07/02/18 07:29 Nitrostat - SL Q5M PRN FOR CHEST PAIN Non-Formulary Medication 0 ml 07/02/18 10:00 07/02/18 09:40 Brimonidine Tartrate/Timolol [Combigan 0.2%-0.5% Eye Drops] OU 1 ml BID FELECIA Administration Non-Formulary Medication 0 ml 07/02/18 22:00 Latanoprost/Pf [Latanoprost 0.005% Eye Drop] OS HS FELECIA Pantoprazole Sodium 40 mg 07/02/18 10:00 07/02/18 09:34 Protonix - PO 40 mg DAILY FELECIA Administration Tamsulosin HCl 0.4 mg 07/02/18 22:00 Flomax - PO HS FELECIA ASSESSMENT/PLAN: 68 year-old male with a PMH significant for HTN, HLD, and myalgias. Placed on observation for chest pain and SOB. Positive stress test. 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 Early following - Continue ASA and statin, start beta celi; nitro SL PRN - NSR with several episodes of irregular, narrow complex tachycardia c/w PAF , started on Heparin Drip Hypertensive urgency - Resolved; 134/66 today - BP 197/100 in ED - Continue Amlodipine, Lisinopril, and Toprol XL 25mg daily Hyperlipidemia - Continue Atorvastatin 10 mg QHS BPH - Flomax 0.4 mg QHS FEN - Fluids: PO intake adequate - Electrolytes: replete as indicated - Nutrition: low sodium DVT prophylaxis - On heparin drip Dispo: continues to require inpatient care. Full code. Visit type - Emergency Visit Emergency Visit: No - New Patient This patient is new to me today: Yes Date on this admission: 07/02/18 - Critical Care Critical Care patient: No
[2018-07-02] MEDS: ALPRAZolam 0.25 MG TABLET PO SCH (21:39)
[2018-07-02] MEDS ORDERED: TAMSULOSIN HCL 0.4 MG CAP PO SCH (22:00)
[2018-07-02] MEDS ORDERED: ATORVASTATIN CA 10 MG TABLET (FP) PO SCH (22:00)
[2018-07-02] MEDS ORDERED: [UNRECOGNIZED DRUG - OTHER] OS SCH (22:00)
[2018-07-02] MEDS ORDERED: LATANOPROST OS SCH (22:00)
[2018-07-03 06:53] LABS: HEMATOCRIT 43.6 % (35.4-49); HEMOGLOBIN 14.2 GM/dL (11.7-16.9); MCH 28.9 pg (25.7-33.7); MCHC 32.7 g/dl (32.0-35.9); MEAN CELL VOLUME 88.4 fl (80-96); MEAN PLT VOLUME 10.2 fl (7.5-11.1); PLATELET COUNT 153 K/MM3 (134-434); RBC 4.93 M/mm3 (4.00-5.60); RDW 13.4 % (11.9-15.9); WHITE BLOOD COUNT 8.7 K/mm3 (4.0-10.0)
--- NOTE | 2018-07-03 08:17 | PN ---
Progress Note, Physician Chief Complaint: no CP, SOB. No syncope - Current Medication List Current Medications: Active Medications Alprazolam (Xanax -) 0.5 mg PO HS [facility] Last Admin: 07/02/18 21:39 Dose: 0.5 mg Alprazolam (Xanax -) 0.25 mg PO Q6H PRN PRN Reason: ANXIETY Last Admin: 07/02/18 09:34 Dose: 0.25 mg Amlodipine Besylate (Norvasc -) 5 mg PO DAILY [facility] Last Admin: 07/02/18 09:34 Dose: 5 mg Aspirin (Asa -) 81 mg PO DAILY [facility] Last Admin: 07/02/18 09:34 Dose: 81 mg Atorvastatin Calcium (Lipitor -) 10 mg PO HS [facility] Last Admin: 07/02/18 21:39 Dose: 10 mg Heparin Sodium (Porcine) (Heparin -) 1,000 unit IVPUSH PRN PRN PRN Reason: Heparin Heparin Sodium (Porcine) (Heparin -) 5,000 unit IVPUSH PRN PRN PRN Reason: Heparin Heparin Sodium (Porcine) 25, (000 unit/ Sodium Chloride) 500 mls @ 20 mls/hr IV TITR [facility]; Protocol Last Admin: 07/02/18 11:32 Dose: 1,000 unit/hr, 20 mls/hr Lisinopril (Prinivil) 10 mg PO DAILY [facility] Last Admin: 07/02/18 09:34 Dose: 10 mg Metoprolol Succinate (Toprol Xl -) 25 mg PO DAILY [facility] Last Admin: 07/02/18 09:34 Dose: 25 mg Nitroglycerin (Nitrostat -) 0.3 mg SL Q5M PRN PRN Reason: FOR CHEST PAIN Non-Formulary Medication (Brimonidine Tartrate/Timolol [Combigan 0.2%-0.5% Eye Drops]) 0 ml OU BID [facility] Last Admin: 07/02/18 21:40 Dose: 1 ml Non-Formulary Medication (Latanoprost/Pf [Latanoprost 0.005% Eye Drop]) 0 ml OS HS [facility] Last Admin: 07/02/18 21:40 Dose: 1 ml Pantoprazole Sodium (Protonix -) 40 mg PO DAILY [facility] Last Admin: 07/02/18 09:34 Dose: 40 mg Tamsulosin HCl (Flomax -) 0.4 mg PO HS [facility] Last Admin: 07/02/18 21:39 Dose: 0.4 mg - Objective Vital Signs: Vital Signs Temperature 98.2 F 07/03/18 06:54 Pulse Rate 58 L 07/03/18 06:54 Respiratory Rate 20 07/03/18 06:54 Blood Pressure 132/69 07/03/18 06:54 O2 Sat by Pulse Oximetry (%) 95 07/02/18 21:00 Constitutional: Yes: No Distress, Calm Eyes: Yes: Conjunctiva Clear Cardiovascular: Yes: Regular Rate and Rhythm Respiratory: Yes: CTA Bilaterally Gastrointestinal: Yes: Soft Edema: No Neurological: Yes: Alert, Oriented Labs: CBC, BMP 07/03/18 06:00 07/01/18 10:32 Laboratory Tests 06/30/18 06/30/18 06/30/18 10:21 16:00 23:00 WBC Hgb Plt Count PTT (Actin FS) Sodium Potassium BUN Creatinine Troponin I < 0.02 < 0.03 < 0.03 07/01/18 07/02/18 07/03/18 10:32 17:00 06:00 WBC 8.7 Hgb 14.2 Plt Count 153 PTT (Actin FS) 58.8 H Sodium 134 L Potassium 4.3 BUN 24 H Creatinine 1.0 Troponin I 07/03/18 06:00 WBC Hgb Plt Count PTT (Actin FS) Pending Sodium Potassium BUN Creatinine Troponin I - ....Imaging EKG: Image Reviewed Assessment/Plan IMP: Dyspnea on exertion with abnormal nuclear stress, moderate perfusion defect Probable PAF REC: 1. Cont start [facility] gtts. 2. Cont tele 3. Patient now agreeable for transfer to [place] for cath as recc by Dr. Early
[2018-07-03] MEDS ORDERED: PT OWN MED DRAWER 7, Y5N ONE (08:50)
[2018-07-03] MEDS: PATIENT'S OWN MEDICATION (NON-FORMULARY) (Brimonidine Tartrate/Timolol [Combigan 0.2%-0.5% OU SCH (09:04)
[2018-07-03] MEDS: metoPROLOL SUCCINATE 25 MG TAB.SR.24H (FP) PO SCH (09:04)
[2018-07-03] MEDS: ASPIRIN 81 MG CHEWABLE TABLETS PO SCH (09:04)
[2018-07-03] MEDS: PANTOPRAZOLE 40 MG TABLET (FP) PO SCH (09:04)
[2018-07-03] MEDS: amLODIPine BESYLATE 5 MG TABLET (FP) PO SCH (09:04)
[2018-07-03] MEDS: LISINOPRIL 10 MG TABLET (FP) PO SCH (09:04)
[2018-07-03 11:01] VITALS: BP 134/81; PULSE 61; TEMP 97.4
--- NOTE | 2018-07-03 11:02 | DS ---
Physical Exam: SUBJECTIVE: Patient seen and examined. he reports feeling well, no chest pain, palpitations, SOB, or N/V/D. 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 OBJECTIVE: Vital Signs Period Temp Pulse Resp BP Sys/Yates Pulse Ox Last 24 Hr 97.4 F-98.2 F 54-65 16-20 113-132/58-74 95-98 PHYSICAL EXAM GENERAL: The patient is awake, alert, and fully oriented, in no acute distress. HEAD: Normal with no signs of trauma. EYES: PERRL, extraocular movements intact, sclera anicteric, conjunctiva clear. No ptosis. ENT: Ears normal, nares patent, oropharynx clear without exudates, moist mucous membranes. NECK: Trachea midline, full range of motion, supple. LUNGS: Breath sounds equal, clear to auscultation bilaterally, no wheezes, no crackles, no accessory muscle use. HEART: Regular rate and rhythm, S1, S2 without murmur, rub or gallop. ABDOMEN: Soft, nontender, nondistended, normoactive bowel sounds, no guarding, no rebound, no hepatosplenomegaly, no masses. EXTREMITIES: 2+ pulses, warm, well-perfused, no edema. NEUROLOGICAL: No facial droop, normal speech, gait not observed. PSYCH: Normal mood, normal affect. SKIN: Warm, dry, normal turgor, no rashes or lesions noted LABS Laboratory Results - last 24 hr 07/02/18 07/03/18 07/03/18 17:00 06:00 06:00 WBC 8.7 RBC 4.93 Hgb 14.2 Hct 43.6 MCV 88.4 MCH 28.9 MCHC 32.7 RDW 13.4 Plt Count 153 MPV 10.2 PTT (Actin FS) 58.8 H 116.2 H HOSPITAL COURSE: Date of Admission:07/01/18 Date of Discharge: 07/03/18 68 year-old male with a PMH significant for HTN, HLD, and myalgias. Placed on observation for chest pain and SOB. Positive stress test. 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 Acute coronary syndrome - Troponins neg x 3 - CXR: unremarkable - ECG: sinus rhythm @ 74, T wave inversions V4-V6 - 07/01 Echo: LV normal; septal motion c/w conduction abnormality; RV normal ; BLAE; mild MR - 07/01 Stress MIBI: moderately sized moderate intensity inferior wall reversible perfusion defect c/w ischemia; EF 53% - Transferred [place] for cardiac factory laborer today. 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 ; 2005 cath normal coronary arteries; negative cardiac workup in 2009; nuclear stress 11/26 normal mpi, no chest pain, ST depression present, 10 mets; Echo 2017: normal LV, mild LVH - Continue ASA and statin, start beta celi; nitro SL PRN - NSR with several episodes of irregular, narrow complex tachycardia c/w PAF , started on Heparin Drip Hypertensive urgency - Resolved; 132/69 today - BP 197/100 in ED - Continue Amlodipine, Lisinopril, and Toprol XL 25mg daily Hyperlipidemia - Continue Atorvastatin 10 mg QHS BPH - Flomax 0.4 mg QHS FEN - Fluids: PO intake adequate - Electrolytes: replete as indicated - Nutrition: low sodium DVT prophylaxis - On heparin drip Dispo: Transferred to cardiac factory laborer at [place] Full code. Minutes to complete discharge: 25 Discharge Summary Reason For Visit: SHORTNESS OF BREATH Current Active Problems ACS (acute coronary syndrome) (Acute) Shortness of breath (Acute) Condition: Stable - Instructions Disposition: TRANSFER ACUTE CARE/OTHER HOSP - Home Medications Comprehensive Discharge Medication List: Ambulatory Orders Brimonidine Tartrate/Timolol [Combigan 0.2%-0.5% Eye Drops] 5 ml OP BID Cyclosporine [Restasis Multidose] 0 ml OP ASDIR 06/30/18 Diclofenac Sodium 50 mg PO BID 06/30/18 Latanoprost/Pf [Latanoprost 0.005% Eye Drop] 7.5 ml OP DAILY 06/30/18 Tamsulosin HCl [Flomax] 0.4 mg PO HS 06/30/18 Alprazolam [Xanax] 0.25 mg PO Q6H PRN #1 tablet MDD 2 mg 07/03/18 Amlodipine Besylate [Norvasc -] 5 mg PO DAILY tablet 07/03/18 Aspirin [ASA -] 81 mg PO DAILY tab.chew 07/03/18 Aspirin [ASA -] 81 mg PO DAILY tab.chew 07/03/18 Enoxaparin [Lovenox -] 40 mg SQ DAILY disp.syrin 07/03/18 Enoxaparin [Lovenox -] 40 mg SQ DAILY disp.syrin 07/03/18 Lisinopril [Prinivil] 10 mg PO DAILY tablet 07/03/18 Metoprolol Succinate [Toprol XL -] 25 mg PO DAILY tab.sr.24h 07/03/18 Nitroglycerin Sublingual [Nitrostat -] 0.3 mg SL Q5M PRN btl 07/03/18 Pantoprazole Sodium [Protonix -] 40 mg PO DAILY tablet.ec 07/03/18 This patient is new to me today: No Emergency Visit: No Critical Care patient: No - Discharge Referral Referred to [facility] Med P.C.: No
== END 2018-07-03 10:45 | disposition short-term general hospital (02) | DRG 311 ==
LOC: FER 09:22 → FM/S 13:10 → OBSVTOIN 07-01 18:14 → J4S 07-01 19:29
PROVIDERS: ADMIT Hospitalist; ATTEND Nurse Practitioner Adult Health
DX: I24.9 Acute ischemic heart disease, unspecified (principal); I10 Essential (primary) hypertension; E78.5 Hyperlipidemia, unspecified; M35.9 Systemic involvement of connective tissue, unspecified; N40.0 Benign prostatic hyperplasia without lower urinary tract symptoms; M79.10 Myalgia, unspecified site; I16.0 Hypertensive urgency; R00.0 Tachycardia, unspecified; R94.39 Abnormal result of other cardiovascular function study
CPT/HCPCS: 36415; 71045-TC-FY; 78452-TC; 80053; 82550; 83036; 83735; 83880; 84100; 84484; 85025; 85027; 85730; 93005; 93017; 93306-TC; 99284-25; A9502; G0378; J1644

== ENCOUNTER 2021-05-23 07:38 | Day surgery (SDC) | payer OTHER, MEDICARE ==
[2021-05-21 15:38] VITALS: BMI 35.6
[2021-05-23 08:16] VITALS: TEMP 98
[2021-05-23 09:52] VITALS: BP 133/79; PULSE 65
== END 2021-05-23 09:40 | disposition home or self-care (01) ==
LOC: FASU-ENDO 07:38
PROVIDERS: ATTEND Internal Medicine Gastroenterology
PROC: 0DBL8ZX Excision of Transverse Colon, Via Natural or Artificial Opening Endoscopic, Diagnostic (ICD-10-PCS; 2021-05-23)
PROC: 0DBH8ZX Excision of Cecum, Via Natural or Artificial Opening Endoscopic, Diagnostic (ICD-10-PCS; 2021-05-23)
PROC: 0DBN8ZX Excision of Sigmoid Colon, Via Natural or Artificial Opening Endoscopic, Diagnostic (ICD-10-PCS; principal; 2021-05-23 08:41)
DX: Z12.11 Encounter for screening for malignant neoplasm of colon (principal); D12.0 Benign neoplasm of cecum; D12.3 Benign neoplasm of transverse colon; D12.5 Benign neoplasm of sigmoid colon; Z86.010 Personal history of colon polyps